=== PATIENT | female | born 1985 | race African-American/Black ===

== ENCOUNTER 2018-10-07 19:03 | Emergency (ER) | payer BC, SELFPAY ==
[2018-10-07 19:21] VITALS: BP 140/92
--- NOTE | 2018-10-07 19:31 | EDM.PDOC ---
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 A1. The patient has not seen an Supervisor Laboratory for this . She is not taking vitamins. The patient states that she developed low back pain and lower pelvic pain around noon to 13:00 today. It is sharp in character and comes and goes, usually lasting about an hour. Around 18:00, she vomited, and at the same time had a gush of what appeared to be clear fluid. She does not believe that it is urine. There was no vaginal bleeding. No similar symptoms with prior pregnancies. The patient denies recent illness, such as fever, chills, cough, chest pain, dyspnea, nausea, vomiting, constipation, diarrhea, or urinary symptoms. The patient does not have a PCP. Her Supervisor Laboratory is Dr. Peng Macias. 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 ED EXAM - Physical Exam Exam: See Below Exam Limited By: No Limitations General Appearance: Alert, WD/WN, No Apparent Distress Eye Exam: Bilateral Eye: EOMI, Normal Inspection Ears: Normal External Exam, Hearing Grossly Normal Nose: Normal Inspection Throat/Mouth: Normal Inspection, Normal Lips, Normal Voice, No Airway Compromise Head: Atraumatic, Normocephalic Neck: Normal Inspection, Full Range of Motion Respiratory/Chest: No Respiratory Distress, Lungs Clear, Normal Breath Sounds, No Accessory Muscle Use Cardiovascular: Normal Peripheral Pulses, Regular Rate, Rhythm, No Edema, No Gallop, No JVD, No Murmur, No Rub GI/Abdominal Exam: Normal Bowel Sounds, Soft, No Organomegaly, No Distention, No Abnormal Bruit, Tender (Mild tenderness to the right upper quadrant, and to the lower abdomen and), Mass (Gravid uterus, consistent with dates) Rectal Exam: Deferred (Female) Exam: Normal External Exam, Normal Speculum Exam (Small amount of thick, whitish fluid in the vagina. No clear fluid. No new or old blood in the vagina. Cervix closed.). No: Vaginal Bleeding Heart Tones per Min: 156 Back Exam: Normal Inspection, Full Range of Motion. No: CVA Tenderness (L), CVA Tenderness (R) Extremities: Normal Inspection, Normal Range of Motion, No Pedal Edema, Normal Capillary Refill Neurological: Alert, Oriented, Normal Cognition, No Motor/Sensory Deficits Psychiatric: Normal Affect Skin Exam: Warm, Dry, Intact, Normal Color, No Rash Course - Vital Signs Last Recorded V/S: Last Vital Signs Temp 37.2 C 10/07/18 19:19 Pulse 89 10/07/18 19:19 Resp 20 10/07/18 19:19 BP 140/92 H 10/07/18 19:19 Pulse Ox 100 10/07/18 19:19 - Orders/Labs/Meds Orders: Active Orders 24 hr Category Date Time Status Heart Tones [RC] ASDIRECTED Care 10/07/18 19:29 Active Pelvic Exam, Set Up [RC] ASDIRECTED Care 10/07/18 19:54 Active Labs: Laboratory Tests 10/07/18 Range/Units 19:55 HCG, Quant 5895.0 mIU/mL - Re-Assessments/Exams Free Text/Narrative Re-Assessment/Exam: 10/07/18 19:30 We are checking heart tones. The patient will be taken to our gynecologic examination room, where I will evaluate for the presence of amniotic fluid in the vagina, as well as status of the cervix. We will request from OB some nitrazine paper as well as a glass slide, if available. 10/07/18 19:35 heart tones are 156 bpm. We acquired an AmniSure kit from [facility]. 10/07/18 19:57 The AmniSure test is negative. 10/07/18 20:27 A quantitative hCG was obtained, however the patient does not need to wait for that result, since it is only a single point in time. Prior tests and found that the patient's blood type is AB+. As above, whatever fluid the patient may have leaked when she vomited, it is not amniotic fluid. It was likely urine. heart tones are 156. I will discharge her home, with the recommendation that she follow-up with Dr. Macias at the next available appointment. Departure - Departure Time of Disposition: 20:28 Disposition: Home, Self-Care 01 Condition: Good Clinical Impression: Vomiting during - Discharge Information *PRESCRIPTION DRUG MONITORING PROGRAM REVIEWED*: Not Applicable *COPY OF PRESCRIPTION DRUG MONITORING REPORT IN PATIENT EMILY: Not Applicable Instructions: Morning Sickness, [id number] Referrals: Peng Macias MD [Physician] - Forms: ED Department Discharge Additional Instructions: You were seen in the emergency room after leaking fluid from your vagina when vomiting earlier today. Workup in the ER included an AmniSure test of your vaginal fluid, a quantitative hCG, and heart tones. The AmniSure test returned negative - you did not leak amniotic fluid. You likely leaked urine. heart tones were 156, which is normal for your gestational age of 12 weeks 2 days. Your estimated date of delivery is April 19, 2019. We strongly recommend that you start taking an [id number] vitamin THAT CONTAINS FOLIC ACID. We recommend that you follow-up with your Supervisor Laboratory, Dr. Peng Macias, at the next available appointment. If any other problems, please do not hesitate to return to the ER. - My Orders Last 24 Hours: My Active Orders 10/07/18 19:29 Heart Tones [RC] ASDIRECTED 10/07/18 19:54 Pelvic Exam, Set Up [RC] ASDIRECTED - Assessment/Plan Last 24 Hours: My Active Orders 10/07/18 19:29 Heart Tones [RC] ASDIRECTED 10/07/18 19:54 Pelvic Exam, Set Up [RC] ASDIRECTED
== END 2018-10-07 20:40 | disposition home or self-care (01) ==
LOC: JD.ED 19:03
DX: O21.9 Vomiting of pregnancy, unspecified (principal); O99.211 Obesity complicating pregnancy, first trimester; Z3A.12 12 weeks gestation of pregnancy
CPT/HCPCS: 36415; 84702; 99282; 99284

== ENCOUNTER 2019-02-19 07:31 | Inpatient (IN) | payer BC ==
[2019-02-19] MEDS ORDERED: Ondansetron 4 MG/2 ML SDV IVPUSH PRN (07:51)
[2019-02-19] MEDS ORDERED: Nalbuphine 10 MG/1 ML Vial IVPUSH PRN (07:51)
[2019-02-19] MEDS ORDERED: Sodium Chloride 0.9% 10 ML Syringe FLUSH PRN (07:51)
[2019-02-19] MEDS ORDERED: Oxytocin/Lactated Ringers 10 UNIT/1,000 ML BAG IV SCH (08:00)
[2019-02-19] MEDS ORDERED: Lactated Ringers 1,000 ML ONE (08:01)
[2019-02-19] MEDS: Lactated Ringers 1,000 ML IV SCH ×2 (08:07→08:50)
[2019-02-19] MEDS ORDERED: fentaNYL 100 MCG/2 ML SDV EPIDUR PRN (08:16)
[2019-02-19] MEDS ORDERED: Bupivacaine/fentaNYL/NS 100 ML Bag EPIDUR PRN (08:16)
[2019-02-19] MEDS ORDERED: diphenhydrAMINE 50 MG/ML SDV IVPUSH PRN (08:16)
[2019-02-19] MEDS ORDERED: ePHEDrine 50 MG/ML SDV IVPUSH PRN (08:16)
--- NOTE | 2019-02-19 09:02 | PCM.PREANE ---
Preanesthetic Assessment - Anesthesia/Transfusion/Family Hx Anesthesia History: No Prior Anesthesia Transfusion History: No Prior Transfusion(s) - Review of Systems General: No Symptoms Pulmonary: No Symptoms Cardiovascular: No Symptoms Gastrointestinal: Abdominal Pain Neurological: No Symptoms Other: Reports: None - Physical Assessment Vital Signs: Last Vital Signs Temp 36.6 C 02/19/19 07:51 Pulse 86 02/19/19 07:51 Resp 16 02/19/19 07:51 BP 114/75 02/19/19 07:51 Pulse Ox 98 02/19/19 07:51 Height: 1.65 m Weight: 98.883 kg ASA Class: 2 Mental Status: Alert & Oriented x3 Airway Class: Mallampati = 2 Dentition: Reports: Normal Dentition Thyro-Mental Finger Breadths: 3 Mouth Opening Finger Breadths: 3 ROM/Head Extension: Full Lungs: Clear to Auscultation, Normal Respiratory Effort - Lab Values: Laboratory Last Values WBC 7.52 K/mm3 (3.98-10.04) 02/19/19 07:47 RBC 4.57 M/mm3 (3.98-5.22) 02/19/19 07:47 Hgb 12.3 gm/dl (11.2-15.7) 02/19/19 07:47 Hct 36.6 % (34.1-44.9) 02/19/19 07:47 MCV 80.1 fl (79.4-94.8) 02/19/19 07:47 MCH 26.9 pg (25.6-32.2) 02/19/19 07:47 MCHC 33.6 g/dl (32.2-35.5) 02/19/19 07:47 RDW Std Deviation 56.0 fL (36.4-46.3) H 02/19/19 07:47 Plt Count 216 K/mm3 (182-369) 02/19/19 07:47 MPV 10.9 fl (9.4-12.3) 02/19/19 07:47 Neut % (Auto) 72.5 % (34.0-71.1) H 02/19/19 07:47 Lymph % (Auto) 18.0 % (19.3-51.7) L 02/19/19 07:47 [place] % (Auto) 8.4 % (4.7-12.5) 02/19/19 07:47 Eos % (Auto) 0.8 (0.7-5.8) 02/19/19 07:47 Baso % (Auto) 0.3 % (0.1-1.2) 02/19/19 07:47 Neut # (Auto) 5.46 K/mm3 (1.56-6.13) 02/19/19 07:47 Lymph # (Auto) 1.35 K/mm3 (1.18-3.74) 02/19/19 07:47 [place] # (Auto) 0.63 K/mm3 (0.24-0.36) H 02/19/19 07:47 Eos # (Auto) 0.06 K/mm3 (0.04-0.36) 02/19/19 07:47 Baso # (Auto) 0.02 K/mm3 (0.01-0.08) 02/19/19 07:47 Manual Slide Review Normal smear 02/19/19 07:47 Blood Type AB POSITIVE 02/19/19 07:47 - Allergies Allergies/Adverse Reactions: Allergies Allergy/AdvReac Type Severity Reaction Status Date / Time shellfish derived Allergy Other Verified 02/19/19 07:59 - Acknowledgements Anesthesia Type Planned: Epidural Pt an Appropriate Candidate for the Planned Anesthesia: Yes Alternatives and Risks of Anesthesia Discussed w Pt/Guardian: Yes Pt/Guardian Understands and Agrees with Anesthesia Plan: Yes PreAnesthesia Questionnaire - Past Health History Medical/Surgical History: Denies Medical/Surgical History 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: , 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) Endocrine/Metabolic History: Reports: Obesity/BMI 30+ - HOME MEDS Home Medications: Home Meds PNV95/Ferrous Fumarate/FA [ Tablet] 1 tab PO DAILY 10/07/18 [History] - CURRENT (IN HOUSE) MEDS Current Meds: Current Medications Diphenhydramine HCl (Benadryl) 25 mg IVPUSH Q6H PRN PRN Reason: pruritis Ephedrine Sulfate (Ephedrine Sulfate) 5 mg IVPUSH ASDIRECTED PRN PRN Reason: Hypotension Fentanyl (Sublimaze) 100 mcg EPIDUR Q3H PRN PRN Reason: Pain Last Admin: 02/19/19 08:22 Dose: 100 mcg Fentanyl/Bupivacaine HCl (Fentanyl/Bupivacaine/Ns 2 Mcg-0.125% 100 Ml) 100 ml EPIDUR CONTINUOUS PRN PRN Reason: Pain Lactated Ringer's (Ringers, Lactated) 1,000 mls @ 100 mls/hr IV ASDIRECTED MATEO Last Admin: 02/19/19 08:07 Dose: 100 mls/hr Oxytocin/Lactated Ringer's (Pitocin In Lr 10 Units/1,000 Ml) 10 unit in 1,000 mls @ 500 mls/hr IV .CONTINUOUS MATEO Nalbuphine HCl (Nubain) 10 mg IVPUSH Q2H PRN PRN Reason: Pain Ondansetron HCl (Zofran) 4 mg IVPUSH Q4H PRN PRN Reason: Nausea/Vomiting Sodium Chloride (Saline Flush) 10 ml FLUSH ASDIRECTED PRN PRN Reason: Keep Vein Open Discontinued Medications Lactated Ringer's (Ringers, Lactated) Confirm Administered Dose 1,000 mls @ as directed .ROUTE .[facility] Stop: 02/19/19 08:02 Last Admin: 02/19/19 08:23 Dose: Not Given
[2019-02-19] MEDS ORDERED: FLU Vacc QS2019-20(6MOS+)/PF 60 MCG/0.5 ML SYRINGE IM ONE (10:00)
--- NOTE | 2019-02-19 11:41 | PCM.SN ---
- Free Text/Narrative Note: Delivery note: Robert is a 33-year-old now para 4004 -[place] female who was admitted on the AM of 02/19/2019 in active labor. She was 6 and is dilated, sam moderate intensity. Bag whitfield was intact. Patient progressed to near complete. She underwent ultrasound clear amniotic fluid. She had an epidural placed for labor analgesia. At approximately 1118 hrs. on 02/19/2019 she delivered a viable, curiel, female with Apgars of 8 and 9, a weight of 8 lbs. 1 oz. (3670 g, length of 19.5 inches. She delivered in an occiput anterior position over an intact perineum. Baby was placed on mom's abdomen. Cord was allowed to pulsate for 1-2 minutes and then was clamped and cut. The umbilical cord had 3 vessels. Cord blood was obtained. Upon delivery of the baby IV Pitocin was increased to 500 mL an hour to facilitate increase in uterine tone and decrease risk of bleeding. Placenta delivered in a Neville presentation, appeared intact and complete and was discarded per patient desire. Patient plans to breast-feed. Estimated blood loss was approximately 200 mL. Condition: Good
--- NOTE | 2019-02-19 11:45 | PCM.LDHP ---
<Daniel Duncan - Last Filed: 02/19/19 11:39> L&D History of Present Illness - General Date of Service: 02/19/19 Admit Problem/Dx: Patient Status Order with Admit Dx/Problem 02/19/19 07:51 Patient Status [ADT] Routine Admission Diagnosis/Problem Admission Diagnosis/Problem 02/19/19 11:40 Robert is a 33-year-old 4 para 3003 female who is to be admitted on 02/19/2019 for a vaginal delivery. ALETHEA is 03/09/2019 placing the patient at 37-3/7 weeks gestational age upon admission. 02/19/19 11:45 Source of Information: Patient History Limitations: Reports: No Limitations - History of Present Illness Introduction:: Introduction: Robert is a 33-year-old 4 para 3003 female at 37-3/7 weeks gestational age with and ALETHEA of 03/09/2019 who is to be admitted on 2018 for a vaginal delivery. Her , Erasmo, stated that she had been having contraction all last night. She presented having mild to moderate contractions approximately 3-5 minutes apart. Her amniotic sack was ruptured at approximately 0945. 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 LMP period was said to be but it was unsure if this is accurate. Ultrasounds were not performed during do to the patient's choice. This has been anemic throughout her . She was encouraged to take iron supplements but was unable to due to nausea/ vomiting. She requested and received weekly iron infusions. She plans on breast feeding. She declined genetic testing. Group B strep screen was negative. Her first clinic appointment was on 10/14/2018. During the course of she gained approximately 19.0 pounds. Her vital signs remained stable throughout the course and her fundal height growth was appropriate. Past Pregnancies: 1. 05/21/2003: Male; 8lbs 6oz; 40 weeks; ; [facility]- [facility]. 01/07/2009: Male; 8lbs 0oz; 40 weeks; ; Place of delivery- [facility] 3. 03/22/2016: Female; 7lbs 15oz; 37-3/7; ; Place of deliver- [facility] Laboratory Testing: Laboratory testing in shows blood to be AB+. First hemoglobin was 11.0g/dL. Platelets were 302,000. She is rubella immune. Hepatitis B surface antigen, HIV assays, chlamydia, and gonorrhea were all negative. RPR was non reactive. Second trimester labs were hemoglobin of 9.6g/ dL and platelets of 280,000. Third trimester labs were hemoglobin of 10.4g/dL and platelets of 248,000. Allergies: 1. Seafood- Itching, rash. 2. No known drug allergies. Medications: 1. 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 History: Reports: , 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) Endocrine/Metabolic History: Reports: Obesity/BMI 30+ Social & Family History - Family History Family Medical History: Noncontributory - Tobacco Use Smoking Status *Q: Never Smoker - Caffeine Use Caffeine Use: Reports: None - Recreational Drug Use Recreational Drug Use: No - Living Situation & Occupation Living situation: Reports: , with Spouse, with Family (3 kids) Occupation: Employed ([employer]) L&D Exam - Vital Signs Vital Signs: Last Vital Signs Temp 36.6 C 02/19/19 07:51 Pulse 86 02/19/19 07:51 Resp 16 02/19/19 07:51 BP 114/75 02/19/19 07:51 Pulse Ox 98 02/19/19 07:51 Weight: 98.883 kg - Patient Data Lab Results Last 24 hrs: Laboratory Results - last 24 hr 02/19/19 02/19/19 Range/Units 07:47 07:47 WBC 7.52 (3.98-10.04) K/mm3 RBC 4.57 (3.98-5.22) M/mm3 Hgb 12.3 (11.2-15.7) gm/dl Hct 36.6 (34.1-44.9) % MCV 80.1 (79.4-94.8) fl MCH 26.9 (25.6-32.2) pg MCHC 33.6 (32.2-35.5) g/dl RDW Std Deviation 56.0 H (36.4-46.3) fL Plt Count 216 (182-369) K/mm3 MPV 10.9 (9.4-12.3) fl Neut % (Auto) 72.5 H (34.0-71.1) % Lymph % (Auto) 18.0 L (19.3-51.7) % Spencer % (Auto) 8.4 (4.7-12.5) % Eos % (Auto) 0.8 (0.7-5.8) Baso % (Auto) 0.3 (0.1-1.2) % Neut # (Auto) 5.46 (1.56-6.13) K/mm3 Lymph # (Auto) 1.35 (1.18-3.74) K/mm3 Spencer # (Auto) 0.63 H (0.24-0.36) K/mm3 Eos # (Auto) 0.06 (0.04-0.36) K/mm3 Baso # (Auto) 0.02 (0.01-0.08) K/mm3 Manual Slide Review Normal smear Blood Type AB POSITIVE Gel Antibody Screen Negative Result Diagrams: 02/19/19 07:47 Orders Last 24hrs: Active Orders 24 hr Category Date Time Status Patient Status Manage Transfer [TRANSFER] Routine ADT 02/19/19 11:32 Active Patient Status [ADT] Routine ADT 02/19/19 07:51 Active Activity as Tolerated [RC] PFP Care 02/19/19 07:51 Active Communication Order [RC] ASDIRECTED Care 02/19/19 07:51 Active Heart Tones [RC] ASDIRECTED Care 02/19/19 07:52 Active Non Stress Test [RC] PER UNIT ROUTINE Care 02/19/19 07:51 Active Influenza Vaccine Charge [RC] .DISCHARGE Care 02/19/19 09:55 Active Notify Provider [RC] ASDIRECTED Care 02/19/19 08:16 Active Notify Provider [RC] PFP Care 02/19/19 07:51 Active Notify Provider [RC] PRN Care 02/19/19 07:51 Active Peripheral IV Care [RC] . DIRECTED Care 02/19/19 07:52 Active Pump Management, Intrathecal [RC] ASDIRECTED Care 02/19/19 07:52 Active Vital Signs [RC] PER UNIT ROUTINE Care 02/19/19 07:51 Active Regular Diet [DIET] Diet 02/19/19 Breakfast Active PATIENT RETYPE [BBK] Routine Lab 02/19/19 08:55 Ordered RAPID PLASMA REAGIN,RPR [CHEM] Routine Lab 02/19/19 07:47 Received Bupivacaine/fentaNYL/NS [fentaNYL/Bupivacaine/NS 2 MCG- Med 02/19/19 08:16 Active 0.125% 100 ML] 100 ml EPIDUR CONTINUOUS PRN Lactated Ringers [Ringers, Lactated] 1,000 ml Med 02/19/19 08:00 Active IV ASDIRECTED Nalbuphine [Nubain] Med 02/19/19 07:51 Active 10 mg IVPUSH Q2H PRN Ondansetron [Zofran] Med 02/19/19 07:51 Active 4 mg IVPUSH Q4H PRN Oxytocin/Lactated Ringers [Pitocin in LR 10 Units/1,000 Med 02/19/19 08:00 Active ML] 10 unit in 1,000 ml IV .CONTINUOUS Sodium Chloride 0.9% [Saline Flush] Med 02/19/19 07:51 Active 10 ml FLUSH ASDIRECTED PRN diphenhydrAMINE [Benadryl] Med 02/19/19 08:16 Active 25 mg IVPUSH Q6H PRN ePHEDrine [ePHEDrine sulfate] Med 02/19/19 08:16 Active 5 mg IVPUSH ASDIRECTED PRN fentaNYL [Sublimaze] Med 02/19/19 08:16 Active 100 mcg EPIDUR Q3H PRN Electronic Heart Tones Ext w TOCO [WOMSER] Oth 02/19/19 07:51 Ordered Routine Electronic Heart Tones Internal [WOMSER] Per Unit Oth 02/19/19 07:51 Ordered Routine Peripheral IV Insertion Adult [OM.PC] Routine Oth 02/19/19 07:51 Ordered Resuscitation Status Routine Resus Stat 02/19/19 07:51 Ordered Medication Orders Diphenhydramine HCl (Benadryl) 25 mg IVPUSH Q6H PRN PRN Reason: pruritis Ephedrine Sulfate (Ephedrine Sulfate) 5 mg IVPUSH ASDIRECTED PRN PRN Reason: Hypotension Fentanyl (Sublimaze) 100 mcg EPIDUR Q3H PRN PRN Reason: Pain Last Admin: 02/19/19 08:22 Dose: 100 mcg Fentanyl/Bupivacaine HCl (Fentanyl/Bupivacaine/Ns 2 Mcg-0.125% 100 Ml) 100 ml EPIDUR CONTINUOUS PRN PRN Reason: Pain Last Admin: 02/19/19 09:08 Dose: 100 ml Lactated Ringer's (Ringers, Lactated) 1,000 mls @ 100 mls/hr IV ASDIRECTED MATEO Last Admin: 02/19/19 08:50 Dose: 100 mls/hr Infusion: 02/19/19 08:50 Dose: 100 mls/hr Admin: 02/19/19 08:07 Dose: 100 mls/hr Oxytocin/Lactated Ringer's (Pitocin In Lr 10 Units/1,000 Ml) 10 unit in 1,000 mls @ 500 mls/hr IV .CONTINUOUS MATEO Nalbuphine HCl (Nubain) 10 mg IVPUSH Q2H PRN PRN Reason: Pain Ondansetron HCl (Zofran) 4 mg IVPUSH Q4H PRN PRN Reason: Nausea/Vomiting Sodium Chloride (Saline Flush) 10 ml FLUSH ASDIRECTED PRN PRN Reason: Keep Vein Open <Peng Macias F - Last Filed: 02/19/19 13:58> L&D History of Present Illness - General Admit Problem/Dx: Admission Diagnosis/Problem Admission Diagnosis/Problem H&P Review of Systems - Review of Systems: Review Of Systems: See Below General: Reports: No Symptoms HEENT: Reports: No Symptoms Pulmonary: Reports: No Symptoms Cardiovascular: Reports: No Symptoms Gastrointestinal: Reports: No Symptoms Genitourinary: Reports: Pain Musculoskeletal: Reports: No Symptoms Skin: Reports: No Symptoms Psychiatric: Reports: No Symptoms Neurological: Reports: No Symptoms L&D Exam - Exam Exam: See Below - Vital Signs Vital Signs: Last Vital Signs Temp 36.6 C 02/19/19 07:51 Pulse 86 02/19/19 07:51 Resp 16 02/19/19 07:51 BP 114/75 02/19/19 07:51 Pulse Ox 98 02/19/19 07:51 - OB Specific Contraction Intensity: Moderate to Strong Movement: Active Heart Tones: Present Heart Rate (FHR) Variability: Moderate (6-25 bmp) Presentation: Vertex - Kitchen Score Kitchen Score Cervix Position: Anterior Kitchen Score Consistency: Soft Kitchen Score Effacement: >80% Kitchen Score Dilation: > 5 cm Kitchen Score 's Station: -1 ,0 Kitchen Score Total: 12 - Exam General: Alert HEENT: PERRLA, Conjunctiva Clear, EACs Clear, EOMI, Hearing Intact, Mucosa Moist & [place], Nares Patent, Normal Nasal Septum, Posterior Pharynx Clear, TMs Clear Neck: Supple, Trachea Midline Lungs: Clear to Auscultation, Normal Respiratory Effort Cardiovascular: Regular Rate, Regular Rhythm GI/Abdominal Exam: Normal Bowel Sounds, Soft, Non-Tender, No Organomegaly, No Distention, No Abnormal Bruit, No Mass, Pelvis Stable Genitourinary: Normal external exam, Normal bimanual exam, Normal speculum exam Back Exam: Normal Inspection, Full Range of Motion Extremities: Normal Inspection, Normal Range of Motion, Non-Tender, No Pedal Edema, Normal Capillary Refill Skin: Warm, Dry, Intact Psychiatric: Alert, Normal Affect, Normal Mood - Patient Data Lab Results Last 24 hrs: Laboratory Results - last 24 hr 02/19/19 02/19/19 Range/Units 07:47 07:47 WBC 7.52 (3.98-10.04) K/mm3 RBC 4.57 (3.98-5.22) M/mm3 Hgb 12.3 (11.2-15.7) gm/dl Hct 36.6 (34.1-44.9) % MCV 80.1 (79.4-94.8) fl MCH 26.9 (25.6-32.2) pg MCHC 33.6 (32.2-35.5) g/dl RDW Std Deviation 56.0 H (36.4-46.3) fL Plt Count 216 (182-369) K/mm3 MPV 10.9 (9.4-12.3) fl Neut % (Auto) 72.5 H (34.0-71.1) % Lymph % (Auto) 18.0 L (19.3-51.7) % Spencer % (Auto) 8.4 (4.7-12.5) % Eos % (Auto) 0.8 (0.7-5.8) Baso % (Auto) 0.3 (0.1-1.2) % Neut # (Auto) 5.46 (1.56-6.13) K/mm3 Lymph # (Auto) 1.35 (1.18-3.74) K/mm3 Spencer # (Auto) 0.63 H (0.24-0.36) K/mm3 Eos # (Auto) 0.06 (0.04-0.36) K/mm3 Baso # (Auto) 0.02 (0.01-0.08) K/mm3 Manual Slide Review Normal smear Blood Type AB POSITIVE Gel Antibody Screen Negative Result Diagrams: 02/19/19 07:47 Problem List Initiated/Reviewed/Updated: Yes Orders Last 24hrs: Active Orders 24 hr Category Date Time Status Activity as Tolerated [RC] PER UNIT ROUTINE Care 02/19/19 11:47 Active Heart Tones [RC] ASDIRECTED Care 02/19/19 07:52 Inactive Influenza Vaccine Charge [RC] .DISCHARGE Care 02/19/19 09:55 Inactive Vital Signs [RC] ASDIRECTED Care 02/19/19 11:47 Active Regular Diet [DIET] Diet 02/19/19 Lunch Active PATIENT RETYPE [BBK] Routine Lab 02/19/19 08:55 Ordered RAPID PLASMA REAGIN,RPR [CHEM] Routine Lab 02/19/19 07:47 Received Acetaminophen [Tylenol] Med 02/19/19 11:47 Active 650 mg PO Q4H PRN Benzocaine/Menthol [Dermoplast Pain Relief [place]] Med 02/19/19 11:47 Active See Dose Instructions TOP ASDIRECTED PRN Docusate Sodium [Colace] Med 02/19/19 11:47 Active 100 mg PO BID PRN Ibuprofen [Motrin] Med 02/19/19 11:47 Active 600 mg PO Q4H PRN Lanolin [Lansinoh HPA] Med 02/19/19 11:47 Active See Dose Instructions TOP ASDIRECTED PRN Vit with Ca/FA/Iron [ Plus Iron] Med 02/20/19 09:00 Active 1 each PO DAILY Witforeign Jeff [Tucks] Med 02/19/19 11:47 Active 1 pad TOP ASDIRECTED PRN Assess Lochia [WOMSER] Per Unit Routine Oth 02/19/19 11:47 Ordered Assess Uterine Involution [WOMSER] Per Unit Routine Oth 02/19/19 11:47 Ordered Breast Pump [WOMSER] Per Unit Routine Ot 02/19/19 11:47 Ordered Heat Therapy [OM.PC] PRN Ot 02/19/19 11:47 Ordered Heat Therapy [OM.PC] PRN Ot 02/20/19 11:47 Ordered Ice Therapy [OM.PC] Per Unit Routine Ot 02/19/19 11:47 Ordered Medication Administration Instruction [OM.PC] Routine Ot 02/19/19 11:47 Ordered Perineal Care [OM.PC] Per Unit Routine Ot 02/19/19 11:47 Ordered Sitz Bath [OM.PC] Per Unit Routine Ot 02/19/19 11:47 Ordered Resuscitation Status Routine Resus Stat 02/19/19 07:51 Ordered Medication Orders Acetaminophen (Tylenol) 650 mg PO Q4H PRN PRN Reason: mild pain or fever Benzocaine/Menthol (Dermoplast Pain Relief [place]) 0 gm TOP ASDIRECTED PRN PRN Reason: Perineal Comfort Measure Last Admin: 02/19/19 13:14 Dose: 1 can Docusate Sodium (Colace) 100 mg PO BID PRN PRN Reason: Constipation Emollient Ointment (Lansinoh Hpa) 0 gm TOP ASDIRECTED PRN PRN Reason: Sore Nipples Ibuprofen (Motrin) 600 mg PO Q4H PRN PRN Reason: Mild pain or fever Prenat Multivit/[place]/Iron/Folic Ac ( Plus Iron) 1 each PO DAILY MATEO Jeff (Tucks) 1 pad TOP ASDIRECTED PRN PRN Reason: Pain Last Admin: 02/19/19 13:13 Dose: 1 tub Assessment/Plan Comment:: 1. 37 4/7 week IUP in active labor with advanced cx dilation 2. GBS neg 3. Plans to nurse 4. Desires epidural in L and D Plan: 1. Anticipate 2. Support decision 3. Epidural prn 4. RPR and CBC upon admission
[2019-02-19] MEDS ORDERED: Benzocaine/Menthol 20%-0.5% Spray 56 GM Canister TOP PRN (11:47)
[2019-02-19] MEDS ORDERED: Lanolin 100% Cream 7 GM Tube TOP PRN (11:47)
[2019-02-19] MEDS ORDERED: Docusate Sodium 100 MG Cap PO PRN (11:47)
[2019-02-19] MEDS ORDERED: Witch Hazel Medicated Pads 40/Jar TOP PRN (11:47)
[2019-02-19] MEDS ORDERED: Acetaminophen 325 MG Tab PO PRN (11:47)
[2019-02-19] MEDS ORDERED: Bupivacaine 0.25% 10 ML SDV ONE (12:00)
[2019-02-19] MEDS: Ibuprofen 600 MG Tab PO PRN (20:22)
[2019-02-20] MEDS: Ibuprofen 600 MG Tab PO PRN ×2 (00:42→07:33)
--- NOTE | 2019-02-20 07:48 | PCM.DCSUM1 ---
Discharge Summary - Hospital Course Free Text/Narrative:: Delivery note: Robert is a 33-year-old now para 4004 -[place] female who was admitted on the AM of 02/19/2019 in active labor. She was 6 and is dilated, sam moderate intensity. Bag whitfield was intact. Patient progressed to near complete. She underwent ultrasound clear amniotic fluid. She had an epidural placed for labor analgesia. At approximately 1118 hrs. on 02/19/2019 she delivered a viable, curiel, female with Apgars of 8 and 9, a weight of 8 lbs. 1 oz. (3670 g, length of 19.5 inches. She delivered in an occiput anterior position over an intact perineum. Baby was placed on mom's abdomen. Cord was allowed to pulsate for 1-2 minutes and then was clamped and cut. The umbilical cord had 3 vessels. Cord blood was obtained. Upon delivery of the baby IV Pitocin was increased to 500 mL an hour to facilitate increase in uterine tone and decrease risk of bleeding. Placenta delivered in a Neville presentation, appeared intact and complete and was discarded per patient desire. Patient plans to breast-feed. Estimated blood loss was approximately 200 mL. Condition: Good HPI Initial Comments: Delivery note: Robert is a 33-year-old now para 4004 -[place] female who was admitted on the AM of 02/19/2019 in active labor. She was 6 and is dilated, sam moderate intensity. Bag whitfield was intact. Patient progressed to near complete. She underwent ultrasound clear amniotic fluid. She had an epidural placed for labor analgesia. At approximately 1118 hrs. on 02/19/2019 she delivered a viable, curiel, female infant with Apgars of 8 and 9, a weight of 8 lbs. 1 oz. (3670 g, length of 19.5 inches. She delivered in an occiput anterior position over an intact perineum. Baby was placed on mom's abdomen. Cord was allowed to pulsate for 1-2 minutes and then was clamped and cut. The umbilical cord had 3 vessels. Cord blood was obtained. Upon delivery of the baby IV Pitocin was increased to 500 mL an hour to facilitate increase in uterine tone and decrease risk of bleeding. Placenta delivered in a Neville presentation, appeared intact and complete and was discarded per patient desire. Patient plans to breast-feed. Estimated blood loss was approximately 200 mL. Condition: Good Brief History: Delivery note: Robert is a 33-year-old now para 4004 -[place] female who was admitted on the AM of 02/19/2019 in active labor. She was 6 and is dilated, sam moderate intensity. Bag whitfield was intact. Patient progressed to near complete. She underwent ultrasound clear amniotic fluid. She had an epidural placed for labor analgesia. At approximately 1118 hrs. on 02/19/2019 she delivered a viable, curiel, female with Apgars of 8 and 9, a weight of 8 lbs. 1 oz. (3670 g, length of 19.5 inches. She delivered in an occiput anterior position over an intact perineum. Baby was placed on mom's abdomen. Cord was allowed to pulsate for 1-2 minutes and then was clamped and cut. The umbilical cord had 3 vessels. Cord blood was obtained. Upon delivery of the baby IV Pitocin was increased to 500 mL an hour to facilitate increase in uterine tone and decrease risk of bleeding. Placenta delivered in a Neville presentation, appeared intact and complete and was discarded per patient desire. Patient plans to breast-feed. Estimated blood loss was approximately 200 mL. Condition: Good Diagnosis: Stroke: No - Discharge Data Discharge Date: 02/20/19 Discharge Disposition: Home, Self-Care 01 Condition: Good - Referral to Home Health Primary Care Physician: Peng Macias MD - Discharge Diagnosis/Problem(s) (1) Vaginal delivery SNOMED Code(s): 254180095 ICD Code: O80 - ENCOUNTER FOR FULL-TERM UNCOMPLICATED DELIVERY Status: Acute Current Visit: Yes (2) 37 weeks gestation of SNOMED Code(s): 80064387 ICD Code: Z3A.37 - 37 WEEKS GESTATION OF Status: Acute Current Visit: No (3) First degree laceration of perineum, delivered, current hospitalization SNOMED Code(s): 647958439, 926322384 ICD Code: O70.0 - FIRST DEGREE PERINEAL LACERATION DURING DELIVERY Status: Acute Current Visit: No (4) Late care SNOMED Code(s): 155089554, 493984189 ICD Code: O09.30 - SUPRVSN OF PREG W INSUFFICIENT ANTENAT CARE, UNSP TRIMESTER Status: Acute Current Visit: No (5) Short cord complicating labor and delivery, delivered SNOMED Code(s): 594547871, 056288391 ICD Code: O69.3XX0 - LABOR AND DELIVERY COMPLICATED BY SHORT CORD, UNSP Status: Acute Current Visit: No - Patient Summary/Data Complications: None Consults: None Hospital Course: Robert Chiu was admitted for active labor. On admission her cervix was dilated to greater than 5 cm. She was GBS negative. She was given an epidural for anesthesia. She had artificial rupture of membranes with clear fluid. She progressed to complete and began pushing. On 02/19/2019 she had a normal vaginal delivery of a live female infant at 11:18. Apgars of 8 and 9. Weight of 3670 g (8 pounds 1.5 ounces). Her course was uneventful. Her pain was well controlled and she had minimal lochia. She was ambulating, tolerating a regular diet and voiding normally. She was breast-feeding with minimal difficulty. She reports that she plans to breast and bottle feed after discharge home. She was afebrile and her hematocrit was 36.6 on admission. She desired to be discharged home on the morning of PPD #1. Her blood type is AB+. - Patient Instructions Diet: Regular Diet as Tolerated Activity: Apply Ice, As Tolerated Activity, Other: Nothing in the vagina for 6 weeks Driving: May Drive Today Showering/Bathing: May Shower Notify Provider of: Fever, Increased Pain, Swelling and Redness, Drainage, Nausea and/or Vomiting Other/Special Instructions: Please contact your physician's office if you have heavy vaginal bleeding enough to soak a pad in less than an hour for several hours. Monitor for any signs of an infection in the breasts with severe pain or redness of the breast. - Discharge Plan *PRESCRIPTION DRUG MONITORING PROGRAM REVIEWED*: Not Applicable *COPY OF PRESCRIPTION DRUG MONITORING REPORT IN PATIENT EMILY: Not Applicable Home Medications: Home Meds PNV95/Ferrous Fumarate/FA [ Tablet] 1 tab PO DAILY 10/07/18 [History] Acetaminophen [Tylenol] 650 mg PO Q6H PRN tablet 02/20/19 [Rx] Benzocaine/Menthol [Dermoplast Pain Relief [place]] 1 spray TOP ASDIRECTED PRN canister 02/20/19 [Rx] Docusate Sodium [Colace] 100 mg PO BID PRN cap 02/20/19 [Rx] Ibuprofen [Motrin] 600 mg PO Q6H PRN tablet 02/20/19 [Rx] Lanolin [Lansinoh HPA] 1 applic TOP ASDIRECTED PRN tube 02/20/19 [Rx] Linda Jeff [Tucks] 1 pad TOP ASDIRECTED PRN pad 02/20/19 [Rx] Patient Handouts: Vaginal Delivery, Care After Referrals: Peng Macias MD [Primary Care Provider] - (Follow-up with Dr. Macias in 2- 3 weeks for routine visit or earlier as needed.) - Discharge Summary/Plan Comment DC Time >30 min.: No - Patient Data Vitals - Most Recent: Last Vital Signs Temp 36.9 C 02/19/19 20:29 Pulse 84 02/19/19 20:29 Resp 16 02/19/19 16:40 BP 133/84 02/19/19 20:29 Pulse Ox 99 02/19/19 20:29 Weight - Most Recent: 98.883 kg I&O - Last 24 hours: Intake & Output 02/19/19 02/20/19 02/20/19 22:59 06:59 14:59 Intake Total 120 Balance 120 Lab Results - Last 24 hrs: Laboratory Results - last 24 hr 02/19/19 02/19/19 02/19/19 Range/Units 07:47 07:47 07:47 WBC 7.52 (3.98-10.04) K/mm3 RBC 4.57 (3.98-5.22) M/mm3 Hgb 12.3 (11.2-15.7) gm/dl Hct 36.6 (34.1-44.9) % MCV 80.1 (79.4-94.8) fl MCH 26.9 (25.6-32.2) pg MCHC 33.6 (32.2-35.5) g/dl RDW Std Deviation 56.0 H (36.4-46.3) fL Plt Count 216 (182-369) K/mm3 MPV 10.9 (9.4-12.3) fl Neut % (Auto) 72.5 H (34.0-71.1) % Lymph % (Auto) 18.0 L (19.3-51.7) % [place] % (Auto) 8.4 (4.7-12.5) % Eos % (Auto) 0.8 (0.7-5.8) Baso % (Auto) 0.3 (0.1-1.2) % Neut # (Auto) 5.46 (1.56-6.13) K/mm3 Lymph # (Auto) 1.35 (1.18-3.74) K/mm3 [place] # (Auto) 0.63 H (0.24-0.36) K/mm3 Eos # (Auto) 0.06 (0.04-0.36) K/mm3 Baso # (Auto) 0.02 (0.01-0.08) K/mm3 Manual Slide Review Normal smear RPR Non-reactive (NONREACTIVE) Blood Type AB POSITIVE Gel Antibody Screen Negative Med Orders - Current: Current Medications Acetaminophen (Tylenol) 650 mg PO Q4H PRN PRN Reason: mild pain or fever Benzocaine/Menthol (Dermoplast Pain Relief [place]) 0 gm TOP ASDIRECTED PRN PRN Reason: Perineal Comfort Measure Last Admin: 02/19/19 13:14 Dose: 1 can Docusate Sodium (Colace) 100 mg PO BID PRN PRN Reason: Constipation Emollient Ointment (Lansinoh Hpa) 0 gm TOP ASDIRECTED PRN PRN Reason: Sore Nipples Ibuprofen (Motrin) 600 mg PO Q4H PRN PRN Reason: Mild pain or fever Last Admin: 02/20/19 07:33 Dose: 600 mg Prenat Multivit/[place]/Iron/Folic Ac ( Plus Iron) 1 each PO DAILY MATEO Jeff (Tucks) 1 pad TOP ASDIRECTED PRN PRN Reason: Pain Last Admin: 02/19/19 13:13 Dose: 1 tub Discontinued Medications Diphenhydramine HCl (Benadryl) 25 mg IVPUSH Q6H PRN PRN Reason: pruritis Ephedrine Sulfate (Ephedrine Sulfate) 5 mg IVPUSH ASDIRECTED PRN PRN Reason: Hypotension Fentanyl (Sublimaze) 100 mcg EPIDUR Q3H PRN PRN Reason: Pain Last Admin: 02/19/19 08:22 Dose: 100 mcg Fentanyl/Bupivacaine HCl (Fentanyl/Bupivacaine/Ns 2 Mcg-0.125% 100 Ml) 100 ml EPIDUR CONTINUOUS PRN PRN Reason: Pain Last Admin: 02/19/19 09:08 Dose: 100 ml Lactated Ringer's (Ringers, Lactated) 1,000 mls @ 100 mls/hr IV ASDIRECTED MATEO Last Admin: 02/19/19 08:50 Dose: 100 mls/hr Oxytocin/Lactated Ringer's (Pitocin In Lr 10 Units/1,000 Ml) 10 unit in 1,000 mls @ 500 mls/hr IV .CONTINUOUS MATEO Last Admin: 02/19/19 11:19 Dose: 500 mls/hr Lactated Ringer's (Ringers, Lactated) Confirm Administered Dose 1,000 mls @ as directed .ROUTE .STK-MED ONE Stop: 02/19/19 08:02 Last Admin: 02/19/19 08:23 Dose: Not Given Influenza Virus Vaccine (Pharmacy To Dose - Influenza Vaccine) 1 each IM ONETIME ONE Stop: 02/19/19 09:55 Influenza Virus Vaccine (Fluzone Quad [id number] Syringe) 60 mcg IM .ONCE ONE Stop: 02/19/19 10:01 Nalbuphine HCl (Nubain) 10 mg IVPUSH Q2H PRN PRN Reason: Pain Ondansetron HCl (Zofran) 4 mg IVPUSH Q4H PRN PRN Reason: Nausea/Vomiting Sodium Chloride (Saline Flush) 10 ml FLUSH ASDIRECTED PRN PRN Reason: Keep Vein Open
--- NOTE | 2019-02-20 07:58 | PCM.SN ---
- Free Text/Narrative Note: Post Progress Note PPD # 1 Subjective: Doing well overall. She reports that she is having some increased amount of cramping in her abdomen and pelvis that is able to be controlled with Motrin. Ambulating without difficulty. Lochia minimal. Voiding without difficulty. Tolerating regular diet without nausea or vomiting. Pain controlled with oral medications. Breast-feeding with minimal difficulty. Objective: Vitals: Vital Signs - 24 hr 02/19/19 02/19/19 02/19/19 09:02 09:30 10:00 Temperature Pulse, 100 84 74 Peripheral Respiratory Rate Blood Pressure 128/80 116/63 115/67 O2 Sat by Pulse 95 Oximetry 02/19/19 02/19/19 02/19/19 10:30 11:01 16:40 Temperature 35.9 C Pulse, 72 111 H 81 Peripheral Respiratory 16 Rate Blood Pressure 115/74 106/69 O2 Sat by Pulse 98 Oximetry 02/19/19 20:29 Temperature 36.9 C Pulse, 84 Peripheral Respiratory Rate Blood Pressure 133/84 O2 Sat by Pulse 99 Oximetry Physical Exam General: Alert and oriented, no acute distress Lungs: Clear to auscultation bilaterally Heart: Regular rate and rhythm Abdomen: Soft, minimal appropriate tenderness, non-distended, fundus midline, nontender, and at the umbilicus Extremities: No edema Laboratory Tests 02/19/19 02/19/19 02/19/19 Range/Units 07:47 07:47 07:47 WBC 7.52 (3.98-10.04) K/mm3 RBC 4.57 (3.98-5.22) M/mm3 Hgb 12.3 (11.2-15.7) gm/dl Hct 36.6 (34.1-44.9) % MCV 80.1 (79.4-94.8) fl MCH 26.9 (25.6-32.2) pg MCHC 33.6 (32.2-35.5) g/dl RDW Std Deviation 56.0 H (36.4-46.3) fL Plt Count 216 (182-369) K/mm3 MPV 10.9 (9.4-12.3) fl Neut % (Auto) 72.5 H (34.0-71.1) % Lymph % (Auto) 18.0 L (19.3-51.7) % [place] % (Auto) 8.4 (4.7-12.5) % Eos % (Auto) 0.8 (0.7-5.8) Baso % (Auto) 0.3 (0.1-1.2) % Neut # (Auto) 5.46 (1.56-6.13) K/mm3 Lymph # (Auto) 1.35 (1.18-3.74) K/mm3 [place] # (Auto) 0.63 H (0.24-0.36) K/mm3 Eos # (Auto) 0.06 (0.04-0.36) K/mm3 Baso # (Auto) 0.02 (0.01-0.08) K/mm3 Manual Slide Review Normal smear RPR Non-reactive (NONREACTIVE) Blood Type AB POSITIVE Gel Antibody Screen Negative ASSESSMENT: 33-year-old female s/p normal vaginal delivery PPD #1, complicated by late care, limited care without ultrasounds during , anemia with iron infusions and ancestry PLAN: Doing well Breast-feeding with minimal difficulty. Assist as needed. Patient plans to breast and bottle feed after discharge. Lochia minimal. Continue to monitor for appropriate lochia. Continue routine care Anticipate discharge home today Franky Nieves MD 7:56 AM 02/20/2019
[2019-02-20] MEDS ORDERED: Prenatal Multivitamin with Calcium/Folic Acid/Iron Tab PO SCH (09:00)
[2019-02-20] MEDS ORDERED: FLU Vacc QS2019-20(6MOS+)/PF 60 MCG/0.5 ML SYRINGE IM ONE (10:35)
[2019-02-20 11:51] VITALS: BP 125/78; PULSE 78
--- NOTE | 2019-02-20 14:14 | PCM48HPAN ---
Post Anesthesia Note - EVALUATION WITHIN 48HRS OF ANESTHETIC Vital Signs in Normal Range: Yes Patient Participated in Evaluation: No (Patient had been discharged at the time of rounds) Respiratory Function Stable: Yes Airway Patent: Yes Cardiovascular Function Stable: Yes Hydration Status Stable: Yes Pain Control Satisfactory: Yes Nausea and Vomiting Control Satisfactory: Yes Mental Status Recovered: Yes Vital Signs: Last Vital Signs Temp 36.1 C 02/20/19 10:29 Pulse 78 02/20/19 10:29 Resp 16 02/20/19 10:29 BP 125/78 02/20/19 10:29 Pulse Ox 97 02/20/19 10:29 - COMMENTS/OBSERVATIONS Free Text/Narrative:: Nursing staff had no concerns.
== END 2019-02-20 12:45 | disposition home or self-care (01) | DRG 560 ==
LOC: JD.OB 07:31 → JD.OBCHECK 07:31 → JD.OB 07:51 → JD.OBCHECK 07:51 → OBSVTOIN 11:18 → JD.OB 11:19
PROVIDERS: ADMIT Obstetrics & Gynecology; ATTEND Obstetrics & Gynecology
PROC: 10907ZC Drainage of Amniotic Fluid, Therapeutic from Products of Conception, Via Natural or Artificial Opening (ICD-10-PCS; principal; 2019-02-19)
PROC: 3E033VJ Introduction of Other Hormone into Peripheral Vein, Percutaneous Approach (ICD-10-PCS; 2019-02-19)
PROC: 3E0R3BZ Introduction of Anesthetic Agent into Spinal Canal, Percutaneous Approach (ICD-10-PCS; 2019-02-19)
PROC: 10E0XZZ Delivery of Products of Conception, External Approach (ICD-10-PCS; 2019-02-19)
PROC: 3E02340 Introduction of Influenza Vaccine into Muscle, Percutaneous Approach (ICD-10-PCS; 2019-02-20)
DX: O69.3XX0 Labor and delivery complicated by short cord, not applicable or unspecified (principal); O99.02 Anemia complicating childbirth; D64.9 Anemia, unspecified; O99.214 Obesity complicating childbirth; E66.9 Obesity, unspecified; O69.1XX0 Labor and delivery complicated by cord around neck, with compression, not applicable or unspecified; O70.0 First degree perineal laceration during delivery; Z3A.37 37 weeks gestation of pregnancy; Z37.0 Single live birth; Z91.013 Allergy to seafood; Z23 Encounter for immunization
CPT/HCPCS: 01967; 36415; 51702; 59025; 59409; 85025; 86592; 86850; 86900; 86901; 90686; A9270-GY; J2590; J3010; J3490; J7120